=== PATIENT | female | born 1985 | race Caucasian/White ===

== ENCOUNTER 2020-06-17 07:30 | Emergency (ER) | payer BC ==
--- NOTE | 2020-06-17 07:48 | EDM.PDOC ---
ED HPI GENERAL MEDICAL PROBLEM - General Chief Complaint: Lower Extremity Injury/Pain Stated Complaint: KNEE PAIN Time Seen by Provider: 06/17/20 07:45 Source of Information: Reports: Patient History Limitations: Reports: No Limitations - History of Present Illness INITIAL COMMENTS - FREE TEXT/NARRATIVE: 34-year-old female who had onset of pain in her left knee on the of this last week. It was an aching, sharp and her type pain that seemed to be all in the knee. She was seen by her chiropractor on and was told that it was most probably arthritis and told her to rest. She has been taking ibuprofen and Tylenol for the pain but the pain has progressively worsened with time. Now the pain seems to go up and down the leg and there is pain with any kind of movement and she finds it difficult to find any comfortable position. The pain is now a 9-10/10. There has been no swelling in the knee. No redness. No increased warmth. No fevers or chills. 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 There is no other joint pain. No nausea or vomiting. Normal sensation in her left foot. There are no other associated signs or symptoms. There are no other modifying factors. 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 left knee Pain Score (Numeric/FACES): 9 - Related Data Allergies Allergy/AdvReac Type Severity Reaction Status Date / Time No Known Allergies Allergy Verified 06/17/20 07:34 Home Meds: Home Meds Norethindrone-Ethinyl Estrad [Necon] 1 each PO DAILY 08/25/15 [History] Ibuprofen 600 mg PO Q8H PRN 06/17/20 [History] traMADol [Ultram] 50 mg PO Q6H PRN #16 tab 06/17/20 [Rx] Past Medical History HEENT History: Reports: Impaired Vision Cardiovascular History: Reports: High Cholesterol Genitourinary History: Reports: Other (See Below) Other Genitourinary History: MICROHEMATURIA, NONINFLAMMATORY DISORDER OF VAGINA [employer]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.) Review of Systems - Review of Systems Review Of Systems: See Below Constitutional: Reports: No Symptoms Eyes: Reports: No Symptoms Ears: Reports: No Symptoms Nose: Reports: No Symptoms Mouth/Throat: Reports: No Symptoms Respiratory: Reports: No Symptoms Cardiovascular: Reports: No Symptoms GI/Abdominal: Reports: No Symptoms Musculoskeletal: Reports: Joint Pain (Left knee pain) Skin: Reports: No Symptoms Neurological: Reports: No Symptoms Psychiatric: Reports: No Symptoms ED EXAM, GENERAL - Physical Exam Exam: See Below Exam Limited By: No Limitations General Appearance: Alert, Moderate Distress (In pain.), Obese Eye Exam: Bilateral Eye: EOMI, Normal Inspection Ears: Normal External Exam, Hearing Grossly Normal Ear Exam: Bilateral Ear: Auricle Normal Nose: Normal Inspection, Normal Mucosa, No Blood Throat/Mouth: Normal Inspection, Normal Lips, Normal Oropharynx, Normal Voice, No Airway Compromise Head: Atraumatic, Normocephalic Neck: Normal Inspection, Supple, Non-Tender, Full Range of Motion Respiratory/Chest: No Respiratory Distress, Lungs Clear, Normal Breath Sounds, No Accessory Muscle Use, Chest Non-Tender Cardiovascular: Normal Peripheral Pulses, Regular Rate, Rhythm, No Murmur Peripheral Pulses: 2+: Radial (L), Radial (R), Dorsalis Pedis (L), Dorsalis Pedis (R) GI/Abdominal: Normal Bowel Sounds, Soft, Non-Tender, No Mass Back Exam: Normal Inspection, Full Range of Motion Extremities: No Pedal Edema, Normal Capillary Refill, Limited Range of Motion (Secondary to pain.). No: Joint Swelling, Philipp's Sign, Increased Warmth Neurological: Alert, Oriented, CN II-XII Intact, Normal Cognition, No Motor/Sensory Deficits Psychiatric: Normal Affect Skin Exam: Warm, Dry, Intact, Normal Color, No Rash. No: Erythema, Increased Warmth Course - Vital Signs Last Recorded V/S: Last Vital Signs Temp 36.6 C 06/17/20 07:30 Pulse 98 06/17/20 07:30 Resp 17 06/17/20 07:30 BP 137/78 06/17/20 07:30 Pulse Ox 98 06/17/20 07:30 - Orders/Labs/Meds Orders: Active Orders 24 hr Category Date Time Status Dylan Bandage [RC] ONETIME Care 06/17/20 09:36 Ordered Communication Order [RC] Click to Edit Care 06/17/20 09:36 Ordered Knee 1V or 2V Lt [CR] Stat Exams 06/17/20 08:17 Taken Meds: Medications Discontinued Medications Generic Name Dose Route Start Last Admin Trade Name Lacho PRN Reason Stop Dose Admin Hydrocodone Bitart/Acetaminophen 2 tab 06/17/20 08:18 06/17/20 08:23 Acetaminophen/Hydrocodone 325-5 Mg Tab PO 06/17/20 08:19 2 tab ONETIME ONE Administration - Radiology Interpretation Free Text/Narrative:: Left knee x-ray shows no fracture and no acute abnormality. - Re-Assessments/Exams Free Text/Narrative Re-Assessment/Exam: 06/17/20 09:25: The patient's x-ray was normal. Reevaluation of the patient shows that she has decreased pain and appears to have increased mobility. There are still no redness or effusion noted. I am unsure why she is having the knee pain. It is quite possible this could be a meniscus-type injury. I will place the patient on crutches and she can use an Dylan wrap for comfort and support. She can continue to take Tylenol and ibuprofen for pain as needed. I have also given her a prescription for tramadol for moderate to severe pain. She should follow-up with her primary provider as she will probably need orthopedic referral. Departure - Departure Time of Disposition: 09:40 Disposition: Home, Self-Care 01 Condition: Good Clinical Impression: Left knee pain Qualifiers: Chronicity: acute Qualified Code(s): M25.562 - Pain in left knee - Discharge Information Prescriptions: traMADol [Ultram] 50 mg PO Q6H PRN #16 tab PRN Reason: Moderate to severe pain Instructions: Acute Knee Pain, Adult, [id number], Crutch Use, Adult, [id number] Referrals: Thomas Duarte MD [Primary Care Provider] - Forms: ED Department Discharge Additional Instructions: The x-ray of your left knee was normal. I am unsure why you are having the left knee pain. It is possibly due to some injury to the cartilage in your knee You do not have any evidence of infection. There is no fracture. There were no tumors or other abnormalities seen on the x-ray. Use the crutches and have no weightbearing on your left leg. Use the Dylan wrap for comfort and support. Continue to take Tylenol and ibuprofen as needed for pain. Medication as prescribed for more severe pain (tramadol 50 mg). Follow-up with your primary provider this coming week as you will most probably need referral to an orthopedic surgeon. Back to the emergency department for redness in the area, increased swelling, fever or any other concerning signs or symptoms. Sepsis Event Note (ED) - Evaluation Sepsis Screening Result: No Definite Risk - Focused Exam Vital Signs: Vital Signs Temp Pulse Resp BP Pulse Ox 06/17/20 07:30 36.6 C 98 17 137/78 98 - My Orders Last 24 Hours: My Active Orders 06/17/20 08:17 Knee 1V or 2V Lt [CR] Stat 06/17/20 09:36 Dylan Bandage [RC] ONETIME Communication Order [RC] Click to Edit - Assessment/Plan Last 24 Hours: My Active Orders 06/17/20 08:17 Knee 1V or 2V Lt [CR] Stat 06/17/20 09:36 Dylan Bandage [RC] ONETIME Communication Order [RC] Click to Edit
[2020-06-17] MEDS ORDERED: Acetaminophen/HYDROcodone 325-5 MG Tab PO ONE (08:18)
[2020-06-17 09:55] VITALS: BP 138/87; PULSE 70
--- NOTE | 2020-06-19 12:10 | CR ---
INDICATION: Left knee pain, no known trauma, tenderness laterally, painful to straighten, painful to bend. LEFT KNEE: Frontal, lateral and patellofemoral sunrise views of the left knee were obtained 06/17/20 - no comparisons. There may be slightly increased density in the suprapatellar bursa area raising question of a small knee joint effusion. This should be correlated clinically. Bone density appeared to be normal. Patellofemoral and femorotibial joint spaces appear to be well maintained with no significant appearing hypertrophic degenerative changes. No evidence of an acute or dislocation was seen. IMPRESSION: Normal appearing left knee except for question of knee joint effusion - correlate clinically. MRI may be helpful for further evaluation of soft tissue injury is suspected clinically MTDD
== END 2020-06-17 09:55 | disposition home or self-care (01) ==
LOC: FB.ED 07:30
DX: M25.562 Pain in left knee (principal); E66.9 Obesity, unspecified; Z68.34 Body mass index [BMI] 34.0-34.9, adult; Z87.891 Personal history of nicotine dependence
CPT/HCPCS: 73560-LT; 73562-LT; 99283-25; A9270-GY

== ENCOUNTER 2024-10-18 04:21 | Emergency (ER) | payer BC ==
[2024-10-18 04:36] VITALS: BP 139/81; PULSE 67
== END 2024-10-18 05:27 | disposition home or self-care (01) ==
LOC: FB.ED 04:21
DX: S05.02XA Injury of conjunctiva and corneal abrasion without foreign body, left eye, initial encounter (principal); E78.00 Pure hypercholesterolemia, unspecified; Z79.899 Other long term (current) drug therapy; X58.XXXA Exposure to other specified factors, initial encounter; Y93.89 Activity, other specified
CPT/HCPCS: 99283

== ENCOUNTER 2024-11-29 07:16 | Day surgery (SDC) | payer BC ==
[2024-11-29] MEDS ORDERED: Propofol 200 MG/20 ML SDV IV ONE (07:17)
[2024-11-29] MEDS ORDERED: Midazolam 1 MG/ML 2 ML SDV IV ONE (07:17)
[2024-11-29] MEDS ORDERED: Sodium Chloride 0.9% 10 ML Syringe FLUSH PRN (07:45)
[2024-11-29 08:06] VITALS: BP 117/84; PULSE 76
[2024-11-29] MEDS: Lactated Ringers 1,000 ML IV SCH (08:40)
== END 2024-11-29 11:05 | disposition home or self-care (01) ==
LOC: FB.SDS 07:16
PROVIDERS: ATTEND Surgery
DX: K62.5 Hemorrhage of anus and rectum (principal); R10.84 Generalized abdominal pain; E78.00 Pure hypercholesterolemia, unspecified; E11.9 Type 2 diabetes mellitus without complications; E66.9 Obesity, unspecified; Z68.36 Body mass index [BMI] 36.0-36.9, adult; Z80.0 Family history of malignant neoplasm of digestive organs; Z88.8 Allergy status to other drugs, medicaments and biological substances; Z79.899 Other long term (current) drug therapy
CPT/HCPCS: 00811; A9270-GY; J2003; J2250; J2704; J7120